=== PATIENT | male | born 1965 | race Caucasian/White ===

== ENCOUNTER 2020-08-07 13:39 | Inpatient (IN) | payer MEDICARE, MEDICAID ==
[~2020-08-07] VITALS: Ht 152.4 cm; Wt 106.5 kg
[2020-08-07 14:05] LABS: BASOPHILS 1.3 % (0-2); EOSINOPHILS 1.8 % (0-7); HEMATOCRIT 45.7 % (42.0-54.0); HEMOGLOBIN 15.4 g/dL (13.5-17.5); LYMPHOCYTES 17.1 % (15-50); MCHC 33.7 g/dL (31.0-37.0); MEAN PLATELET VOLUME 8.2 fL (7.4-10.4); MONOCYTES 5.5 % (2-11); NEUTROPHILS 74.3 % (40-80); PLATELET COUNT 167 10x3/uL (130-400); RBC 4.81 10x6/uL (4.20-6.10); RDW 14.4 % (11.5-14.5); WBC 8.4 10x3/uL (4.8-10.8)
[2020-08-07 14:15] LABS: CALC OSMOLALITY 279 mosm/kg (275-300); CALCIUM 8.6 mg/dL (8.5-10.1); CARBON DIOXIDE 33.6 mmol/L (21.0-32.0); CHLORIDE - SERUM 101 mmol/L (98-107); CREATININE - SERUM 0.8 mg/dL (0.6-1.3); SODIUM 138 mmol/L (136-145); UREA NITROGEN 14 mg/dL (7-18); eGFR NON AFRICAN AMERICAN > 90 mL/min (90-120)
[2020-08-07 14:18] LABS: GLUCOSE 146 mg/dL (74-106)
[2020-08-07 14:29] LABS: ALBUMIN 3.7 g/dL (3.4-5.0); ALKALINE PHOSPHATASE 101 U/L (30-120); ALT (SGPT) 44 U/L (10-68); BILIRUBIN - TOTAL 0.52 mg/dL (0.2-1.3); CKMB 1.7 U/L (0.0-3.6); CREATINE KINASE 158 UL (21-232); PRO BNP 86 pg/mL (0-125); PROTEIN - SERUM 7.2 g/dL (6.4-8.2); TROPONIN-I < 0.017 ng/mL (0.000-0.060)
[2020-08-07 14:47] LABS: APTT 24.9 SECONDS (22.8-39.4); INR 0.97 (0.85-1.17); PROTIME 11.9 SECONDS (11.6-15.0)
[2020-08-07 14:57] VITALS: BP 132/82
[2020-08-07 18:01] VITALS: BP 140/80
[2020-08-07 19:00] VITALS: BP 134/80
[2020-08-07] MEDS ORDERED: LANTUS SOL100 UNIT/2 SC (19:47)
[2020-08-07] MEDS ORDERED: [UNRECOGNIZED DRUG - REMARK] (19:48)
[2020-08-07] MEDS ORDERED: WATER PILL (19:48)
[2020-08-07] MEDS ORDERED: BLOOD PRESSURE PILL (19:48)
[2020-08-07] MEDS ORDERED: PROTONIX40 MG PO (19:48)
[2020-08-07] MEDS ORDERED: [UNRECOGNIZED DRUG - REMARK] (19:49)
[2020-08-07 20:35] LABS: UDS - AMPHET NEGATIVE QUAL (NEGATIVE); UDS - BARB NEGATIVE QUAL (NEGATIVE); UDS - BENZO NEGATIVE QUAL (NEGATIVE); UDS - COCAINE NEGATIVE QUAL (NEGATIVE); UDS - OPIATE POSITIVE QUAL (NEGATIVE); UDS - PCP NEGATIVE QUAL (NEGATIVE); UDS - THC NEGATIVE QUAL (NEGATIVE)
[2020-08-07 21:43] VITALS: BP 153/82
[2020-08-08 00:56] VITALS: BMI 45.9
[2020-08-08 05:38] VITALS: BP 96/41
[2020-08-08 06:10] LABS: BASOPHILS 0.3 % (0-2); EOSINOPHILS 0 % (0-7); HEMATOCRIT 43.9 % (42.0-54.0); HEMOGLOBIN 14.9 g/dL (13.5-17.5); LYMPHOCYTES 7.1 % (15-50); MCH 31.7 pg (26.0-34.0); MCHC 33.8 g/dL (31.0-37.0); MCV 93.7 fL (80.0-100.0); MEAN PLATELET VOLUME 9.1 fL (7.4-10.4); MONOCYTES 1.2 % (2-11); NEUTROPHILS 91.4 % (40-80); PLATELET COUNT 172 10x3/uL (130-400); RBC 4.69 10x6/uL (4.20-6.10); RDW 14.4 % (11.5-14.5); WBC 7.3 10x3/uL (4.8-10.8)
[2020-08-08 06:21] LABS: ALBUMIN 3.3 g/dL (3.4-5.0); ALKALINE PHOSPHATASE 87 U/L (30-120); ALT (SGPT) 42 U/L (10-68); BILIRUBIN - TOTAL 0.55 mg/dL (0.2-1.3); CALCIUM 8.5 mg/dL (8.5-10.1); CARBON DIOXIDE 30.1 mmol/L (21.0-32.0); CHLORIDE - SERUM 101 mmol/L (98-107); CREATININE - SERUM 0.8 mg/dL (0.6-1.3); MAGNESIUM - SERUM 1.9 mg/dL (1.8-2.4); POTASSIUM - SERUM 3.9 mmol/L (3.5-5.1); PROTEIN - SERUM 6.6 g/dL (6.4-8.2); SODIUM 140 mmol/L (136-145); UREA NITROGEN 17 mg/dL (7-18); eGFR NON AFRICAN AMERICAN > 90 mL/min (90-120)
[2020-08-08 06:22] LABS: CALC OSMOLALITY 289 mosm/kg (275-300); GLUCOSE 260 mg/dL (74-106)
--- NOTE | 2020-08-08 08:30 | NUR ---
PATIENT IN BED WITH IV INTACT. NO COMPLAINTS OR SIGNS OF DISTRESS. CALL LIGHT WITHIN REACH.
[2020-08-08 10:28] VITALS: BP 116/67
[2020-08-08 14:19] VITALS: BP 117/74
[2020-08-08 15:25] VITALS: Ht 152.4 cm; Wt 106.5 kg
[2020-08-08 18:36] VITALS: BP 147/75
--- NOTE | 2020-08-08 18:45 | NUR ---
PATIENT UP TO BR AND BACK TO BED AT THIS TIME. IV INTACT. TYLENOL GIVEN FOR H/A. CALL LIGHT WITHIN REACH.
--- NOTE | 2020-08-08 20:20 | NUR ---
OSCAR NATHAN NOTIFIED OF CRITICAL FSBS.
[2020-08-08 21:03] VITALS: BP 127/65
[2020-08-09] VITALS: BP 99/50
--- NOTE | 2020-08-09 02:57 | NUR ---
I have reviewed this patient and I concur with the Shift Assessment completed by the Licensed Practical Nurse today this shift.
[2020-08-09 04:00] VITALS: BP 107/57
[2020-08-09 07:39] LABS: BASOPHILS 0.4 % (0-2); EOSINOPHILS 0.1 % (0-7); HEMATOCRIT 45.7 % (42.0-54.0); HEMOGLOBIN 15.4 g/dL (13.5-17.5); LYMPHOCYTES 8.4 % (15-50); MCH 31.5 pg (26.0-34.0); MCHC 33.7 g/dL (31.0-37.0); MCV 93.7 fL (80.0-100.0); MEAN PLATELET VOLUME 8.5 fL (7.4-10.4); MONOCYTES 3.8 % (2-11); NEUTROPHILS 87.3 % (40-80); PLATELET COUNT 188 10x3/uL (130-400); RBC 4.88 10x6/uL (4.20-6.10); RDW 14.9 % (11.5-14.5)
[2020-08-09 07:54] LABS: ALBUMIN 3.5 g/dL (3.4-5.0); ALKALINE PHOSPHATASE 91 U/L (30-120); ALT (SGPT) 43 U/L (10-68); BILIRUBIN - TOTAL 0.45 mg/dL (0.2-1.3); CALC OSMOLALITY 286 mosm/kg (275-300); CALCIUM 8.7 mg/dL (8.5-10.1); CARBON DIOXIDE 34.2 mmol/L (21.0-32.0); CHLORIDE - SERUM 101 mmol/L (98-107); CREATININE - SERUM 0.8 mg/dL (0.6-1.3); GLUCOSE 220 mg/dL (74-106); PHOSPHOROUS 3.6 mg/dL (2.5-4.9); PROTEIN - SERUM 7.1 g/dL (6.4-8.2); SODIUM 139 mmol/L (136-145); UREA NITROGEN 19 mg/dL (7-18); eGFR NON AFRICAN AMERICAN > 90 mL/min (90-120)
[2020-08-09 07:59] LABS: MAGNESIUM - SERUM 2.5 mg/dL (1.8-2.4)
[2020-08-09 09:56] VITALS: BP 166/77
[2020-08-09 14:06] VITALS: BP 133/89
--- NOTE | 2020-08-09 16:07 | NUR ---
PATIENT AMBULATED WITH O2 AND WALKER DOWN TO THE END OF THE MUÑOZ AND BACK WITH NO PROBLEMS. WAS A LITTLE SOB AFTER WALK.
[2020-08-09 18:38] VITALS: BP 105/48
[2020-08-09 20:00] VITALS: BP 118/60
[2020-08-10] VITALS: BP 104/56
--- NOTE | 2020-08-10 01:28 | NUR ---
PATIENT DENIES PAIN, HE IS A&O X4, HE APPEARS TO BE RESTING WELL, HAS CPAP ON, HE IS CURRENTLY RESTING IN BED WITH HIS EYES CLOSED.
[2020-08-10 04:00] VITALS: BP 103/50
[2020-08-10 06:25] LABS: BASOPHILS 0.2 % (0-2); EOSINOPHILS 0 % (0-7); HEMATOCRIT 45.1 % (42.0-54.0); HEMOGLOBIN 15.1 g/dL (13.5-17.5); LYMPHOCYTES 8.2 % (15-50); MCH 31.5 pg (26.0-34.0); MCHC 33.5 g/dL (31.0-37.0); MCV 94.2 fL (80.0-100.0); MEAN PLATELET VOLUME 9.2 fL (7.4-10.4); MONOCYTES 3.3 % (2-11); NEUTROPHILS 88.3 % (40-80); PLATELET COUNT 221 10x3/uL (130-400); RBC 4.79 10x6/uL (4.20-6.10); RDW 14.5 % (11.5-14.5); WBC 8.4 10x3/uL (4.8-10.8)
--- NOTE | 2020-08-10 07:15 | NUR ---
AWAKE AND ALERT SITTING ON SIDE OF BED. RESP EVEN AND UNLABORED WITH NO DISTRESS NOTED OR VOICED. CAN EXPRESS NEEDS AND WANTS. NO C/O NOTED OR VOICED. UP AB STACIE ABOUT ROOM. ASSESSMENT COMPLETED. C/L IN REACH AT BEDSIDE.
[2020-08-10 07:20] LABS: ALBUMIN 3.3 g/dL (3.4-5.0); ALKALINE PHOSPHATASE 76 U/L (30-120); ALT (SGPT) 42 U/L (10-68); BILIRUBIN - TOTAL 0.46 mg/dL (0.2-1.3); CALC OSMOLALITY 290 mosm/kg (275-300); CALCIUM 8.6 mg/dL (8.5-10.1); CARBON DIOXIDE 32.3 mmol/L (21.0-32.0); CHLORIDE - SERUM 103 mmol/L (98-107); CREATININE - SERUM 0.8 mg/dL (0.6-1.3); GLUCOSE 210 mg/dL (74-106); MAGNESIUM - SERUM 2.5 mg/dL (1.8-2.4); PHOSPHOROUS 2.9 mg/dL (2.5-4.9); POTASSIUM - SERUM 4.1 mmol/L (3.5-5.1); PROTEIN - SERUM 6.5 g/dL (6.4-8.2); SODIUM 142 mmol/L (136-145); UREA NITROGEN 19 mg/dL (7-18); eGFR NON AFRICAN AMERICAN > 90 mL/min (90-120)
[2020-08-10 10:02] VITALS: BP 115/73
--- NOTE | 2020-08-10 11:05 | NUR ---
I have reviewed this patient and I concur with the Shift Assessment completed by the Licensed Practical Nurse today this shift.
[2020-08-10 13:32] VITALS: BP 122/64
[2020-08-10 16:52] VITALS: BP 142/101
[2020-08-10 19:47] VITALS: BP 128/72
--- NOTE | 2020-08-11 02:18 | NUR ---
PT SAID NOT TO AWAKEN FOR 2 OCLOCK TX
--- NOTE | 2020-08-11 02:35 | NUR ---
PATIENT DENIES PAIN, HEA APPEARS TO BE RESTING WELL, HE IS CURRENTLY RESTING IN BED WITH HIS EYES CLOSED.
[2020-08-11 04:30] VITALS: BP 135/92
[2020-08-11 06:36] LABS: BASOPHILS 0.2 % (0-2); EOSINOPHILS 0 % (0-7); HEMATOCRIT 46.2 % (42.0-54.0); HEMOGLOBIN 15.5 g/dL (13.5-17.5); LYMPHOCYTES 9.6 % (15-50); MCH 31.4 pg (26.0-34.0); MCHC 33.5 g/dL (31.0-37.0); MCV 93.7 fL (80.0-100.0); MEAN PLATELET VOLUME 9.1 fL (7.4-10.4); MONOCYTES 4.3 % (2-11); NEUTROPHILS 85.9 % (40-80); PLATELET COUNT 217 10x3/uL (130-400); RBC 4.93 10x6/uL (4.20-6.10); RDW 14.6 % (11.5-14.5); WBC 8.4 10x3/uL (4.8-10.8)
[2020-08-11 06:48] LABS: ALBUMIN 3.2 g/dL (3.4-5.0); ALKALINE PHOSPHATASE 79 U/L (30-120); ALT (SGPT) 39 U/L (10-68); BILIRUBIN - TOTAL 0.36 mg/dL (0.2-1.3); CALC OSMOLALITY 288 mosm/kg (275-300); CALCIUM 8.4 mg/dL (8.5-10.1); CARBON DIOXIDE 33.3 mmol/L (21.0-32.0); CHLORIDE - SERUM 102 mmol/L (98-107); CREATININE - SERUM 0.8 mg/dL (0.6-1.3); GLUCOSE 216 mg/dL (74-106); MAGNESIUM - SERUM 2.4 mg/dL (1.8-2.4); PHOSPHOROUS 3.3 mg/dL (2.5-4.9); POTASSIUM - SERUM 4.1 mmol/L (3.5-5.1); PROTEIN - SERUM 6.5 g/dL (6.4-8.2); SODIUM 140 mmol/L (136-145); UREA NITROGEN 20 mg/dL (7-18); eGFR NON AFRICAN AMERICAN > 90 mL/min (90-120)
--- NOTE | 2020-08-11 08:30 | NUR ---
PATIENT SITTING UP IN BED EATING. NO COMPLAINTS OR SIGNS OF DISTRESS. CALL LIGHT WITHIN REACH.
[2020-08-11 08:56] VITALS: BP 124/78
[2020-08-11 11:59] VITALS: BP 113/69
--- NOTE | 2020-08-11 13:24 | NUR ---
Nutrition follow-up: diet order: consistsent CHO PO intake 100% of meals Labs reviewed; glucose running high->200 mg/dl; pt on Solumedrol 40 mg q 12 hrs Wt: 234# +BM Pt is currently meeting nutritional goals from initial assessment on 08/08/20 RDN will follow-up pt within 5-7 days.
[2020-08-11] MEDS ORDERED: HYDROCHLOROTH12.5 M1 PO (16:37)
[2020-08-11] MEDS ORDERED: PROTONIX40 MG PO (16:38)
[2020-08-11] MEDS ORDERED: BASAGLAR K100 UNIT/1 SC (16:38)
[2020-08-11 17:00] VITALS: BP 117/77
--- NOTE | 2020-08-11 18:00 | NUR ---
PATIENT IN BED WITH IV INTACT. NO COMPLAINTS OR SIGNS OF DISTRESS. SLEEPING WITH CPAP ON. CALL LIGHT WITHIN REACH.
[2020-08-11 19:35] VITALS: BP 112/69
--- NOTE | 2020-08-12 04:51 | NUR ---
PATIENT DENIES PAIN, HE APPEARED TO REST WELL THROUGH THE NIGHT, HE IS CURRENTLY RESTING IN BED WITH HIS EYES CLOSED.
[2020-08-12 05:15] VITALS: BP 127/69
[2020-08-12 06:40] LABS: HEMATOCRIT 48.1 % (42.0-54.0); HEMOGLOBIN 15.9 g/dL (13.5-17.5); MCV 93.9 fL (80.0-100.0); MEAN PLATELET VOLUME 9.1 fL (7.4-10.4); PLATELET COUNT 218 10x3/uL (130-400); RBC 5.12 10x6/uL (4.20-6.10); RDW 14.8 % (11.5-14.5); WBC 8.4 10x3/uL (4.8-10.8)
[2020-08-12 07:06] LABS: ALBUMIN 3.2 g/dL (3.4-5.0); ALKALINE PHOSPHATASE 74 U/L (30-120); ALT (SGPT) 38 U/L (10-68); BILIRUBIN - TOTAL 0.32 mg/dL (0.2-1.3); CALC OSMOLALITY 286 mosm/kg (275-300); CALCIUM 8.5 mg/dL (8.5-10.1); CARBON DIOXIDE 31.1 mmol/L (21.0-32.0); CHLORIDE - SERUM 103 mmol/L (98-107); CREATININE - SERUM 0.7 mg/dL (0.6-1.3); GLUCOSE 203 mg/dL (74-106); MAGNESIUM - SERUM 2.4 mg/dL (1.8-2.4); PHOSPHOROUS 3.3 mg/dL (2.5-4.9); POTASSIUM - SERUM 4.2 mmol/L (3.5-5.1); PROTEIN - SERUM 6.4 g/dL (6.4-8.2); SODIUM 140 mmol/L (136-145); UREA NITROGEN 19 mg/dL (7-18); eGFR NON AFRICAN AMERICAN > 90 mL/min (90-120)
[2020-08-12 08:10] VITALS: BP 110/63
[2020-08-12 08:10] LABS: LYMPHOCYTES 14 % (15-50); MONOCYTES 5 % (2-11); NEUTROPHILS 81 % (40-80); PLATELET ESTIMATE NORMAL
[2020-08-12 08:13] LABS: IMMUNOGLOBULIN A 109 mg/dL (90-386); IMMUNOGLOBULIN G 623 mg/dL (603-1613)
--- NOTE | 2020-08-12 08:45 | NUR ---
AAOX4 UPON ENTERING. ADMINISTERED MORNING MEDICATION AT THIS TIME. NO DIFFICULTIES. RESTING UPRIGHT IN BED. DENIES ANY NEEDS. BED IN LOWEST POSITION, BED RAILS X2, CALL LIGHT WITHIN REACH. WILL CONTINUE POC. ASSESSMENT PERFORMED AT THIS TIME.
--- NOTE | 2020-08-12 09:22 | MORECARE ---
CASE MANAGEMENT DISCHARGE SUMMARY PATIENT: LISA HAZEL UNIT: [id number] ADM DATE: 08/07/20 AGE: 55 : 65 SEX: M ROOM/BED: D.[facility] AUTHOR: DEIDRA,DOC PHYSICIAN: REFERRING PHYSICIAN: KHADIJAH GERONIMO MD DATE OF SERVICE: 08/12/20 Case Management Discharge Planning Summary DCP REVIEW SUMMARY ANTICIPATED D/C DATE: EXPECTED LOS : CASE STATUS: DCP Initiated INITIAL REVIEW: 08/07/2020 INITIAL REVIEWER: Michelle Holbrook FINAL DISCHARGE DISPOSITION: : FINAL REVIEWER: FINAL REVIEW DATE: DCP Focus Questions & Answers QUESTION: ANSWER : PATIENT: LISA HAZEL ENCOUNTER: [id number] MEDICAL RECORD#: [id number] ADMISSION DATE: 08/07/2020 DISCHARGE DATE: ATTENDING MD: KHADIJAH CAMACHO : AGE: 55 MARITAL STATUS: M DC PLAN ID: [id number] FACILITY: [facility] PRINTED ON: 08/12/20 9:22 CT All edits/amendments must be made on the electronic document DICTATION DATE: 08/12/20921 VACUUM SYSTEM TESTER: DM 08/12/20921 RPT#: [id number] DC DATE: STATUS: ADM IN [facility] [address] [place] [address] END OF REPORT
--- NOTE | 2020-08-12 09:33 | MORECARE ---
CASE MANAGEMENT DISCHARGE SUMMARY PATIENT: LISA HAZEL UNIT: [id number] ADM DATE: 08/07/20 AGE: 55 : 65 SEX: M ROOM/BED: D.2223 AUTHOR: DEIDRA,DOC PHYSICIAN: REFERRING PHYSICIAN: KHADIJAH GERONIMO MD DATE OF SERVICE: 08/12/20 Case Management Discharge Planning Summary COMMENTS ENTERED DATE: 08/12/20 9:20 CT COMMENT TYPE: Discharge Planning REVIEWER: Michelle Holbrook CM met with patient at bedside after obtaining verbal consent. CM discussed availability / needs of home health, REHAB and medical equipment. Patient states has oxygen, trilogy, nebs and a cane. States has oxygen with [employer]. He states his pcp is Dr. Jackson and he uses [facility] for medications. He is currently between places to live. He states he could use rehab at a snf to get better. Patient states any snf in [place] is acceptable. I am faxing a referral to [facility] today. Patient may need 7 days of iv antibiotics per MD note. CM to follow and assist as needed. DCP REVIEW SUMMARY ANTICIPATED D/C DATE: EXPECTED LOS : CASE STATUS: DCP Initiated INITIAL REVIEW: 08/07/2020 INITIAL REVIEWER: Michelle Holbrook FINAL DISCHARGE DISPOSITION: : FINAL REVIEWER: FINAL REVIEW DATE: DCP Focus Questions & Answers QUESTION: ANSWER : PROVIDER NETWORKING REVIEW DATE: 08/12/2020 SERVICE TYPE: Fdc Facility REVIEWER: Michelle Holbrook PROVIDER: FINAL PROVIDER? : FINAL DATE/TIME: CT PATIENT: LISA HAZEL ENCOUNTER: [id number] MEDICAL RECORD#: [id number] ADMISSION DATE: 08/07/2020 DISCHARGE DATE: ATTENDING MD: KHADIJAH CAMACHO : AGE: 55 MARITAL STATUS: M DC PLAN ID: [id number] FACILITY: [facility] PRINTED ON: 08/12/20 9:33 CT All edits/amendments must be made on the electronic document DICTATION DATE: 08/12/20932 PRESSURIZER: MING 08/12/20932 RPT#: [id number] DC DATE: STATUS: ADM IN [facility] [address] [place] [address] END OF REPORT
[2020-08-12 11:31] VITALS: BP 96/61
--- NOTE | 2020-08-12 12:48 | NUR ---
I have reviewed this patient and I concur with the Shift Assessment completed by the Licensed Practical Nurse today this shift.
--- NOTE | 2020-08-12 14:44 | NUR ---
REQUESTED MEDICATION FOR HEADACHE, PROVIDED TYLENOL. REFUSED MEDICINE. EXPLAINED THAT IS ALL THAT IS ORDERED FOR PRN PAIN.
[2020-08-12 15:25] VITALS: BP 106/64
[2020-08-12 20:00] VITALS: BP 112/61
--- NOTE | 2020-08-13 00:53 | NUR ---
DEV CONTACTED PT CPAP MACHINE IS FULL OF BUGS PT CANNOT USE IT IN THE HOSPITAL AND REFUSES TO WEAR A MASK AND USE THE MACHINE FROM HERE. TECH FOR MACHINE CAME IN TO EXCHANGE AND GAVE PT A NEW MACHINE WITH A NOSE ADAPTER, OLD MACHINE REMOVED FROM PT ROOM. WILL CONT WITH PLAN OF CARE.
--- NOTE | 2020-08-13 03:13 | NUR ---
I have reviewed this patient and I concur with the Shift Assessment completed by the Licensed Practical Nurse today this shift.
[2020-08-13 04:00] VITALS: BP 124/80
[2020-08-13 06:11] LABS: IGG SUBCLASS 1 332 mg/dL (248-810); IGG SUBCLASS 2 206 mg/dL (130-555); IGG SUBCLASS 3 49 mg/dL (15-102); IGG SUBCLASS 4 3 mg/dL (2-96); IGGS - IGG SERUM 652 mg/dL (603-1613)
[2020-08-13 08:46] VITALS: BP 99/60
[2020-08-13 11:11] LABS: IMMUNOGLOBULIN E 52 IU/mL (6-495)
[2020-08-13 13:10] VITALS: BP 120/72
--- NOTE | 2020-08-13 14:52 | MORECARE ---
CASE MANAGEMENT DISCHARGE SUMMARY PATIENT: LISA HAZEL UNIT: [id number] ADM DATE: 08/07/20 AGE: 55 : 65 SEX: M ROOM/BED: D.2223 AUTHOR: DEIDRA,DOC PHYSICIAN: REFERRING PHYSICIAN: KHADIJAH GERONIMO MD DATE OF SERVICE: 08/13/20 Case Management Discharge Planning Summary COMMENTS ENTERED DATE: 08/13/20 14:46 CT COMMENT TYPE: Discharge Planning REVIEWER: Michelle FIELDS FILLED OUT AND FAXED. WAITING DETERMINATION. CM TO FOLLOW AND ASSIST NEEDED. ENTERED DATE: 08/12/20 9:20 CT COMMENT TYPE: Discharge Planning REVIEWER: Michelle Holbrook CM met with patient at bedside after obtaining verbal consent. CM discussed availability / needs of home health, REHAB and medical equipment. Patient states has oxygen, trilogy, nebs and a cane. States has oxygen with [facility]. He states his pcp is Dr. Jackson and he uses [facility] for medications. He is currently between places to live. He states he could use rehab at a snf to get better. Patient states any snf in [place] is acceptable. I am faxing a referral to [facility] today. Patient may need 7 days of iv antibiotics per MD note. CM to follow and assist as needed. DCP REVIEW SUMMARY ANTICIPATED D/C DATE: EXPECTED LOS : CASE STATUS: DCP Initiated INITIAL REVIEW: 08/07/2020 INITIAL REVIEWER: Michelle Holbrook FINAL DISCHARGE DISPOSITION: : FINAL REVIEWER: FINAL REVIEW DATE: DCP Focus Questions & Answers QUESTION: ANSWER : PROVIDER NETWORKING REVIEW DATE: 08/12/2020 SERVICE TYPE: Fci Facility REVIEWER: Michelle Holbrook PROVIDER: FINAL PROVIDER? : FINAL DATE/TIME: CT PATIENT: LISA HAZEL ENCOUNTER: [id number] MEDICAL RECORD#: [id number] ADMISSION DATE: 08/07/2020 DISCHARGE DATE: ATTENDING MD: KHADIJAH CAMACHO : AGE: 55 MARITAL STATUS: M DC PLAN ID: [id number] FACILITY: [facility] PRINTED ON: 08/13/20 14:52 CT All edits/amendments must be made on the electronic document DICTATION DATE: 08/13/201451 VACUUM BOTTLE ASSEMBLER: MING 08/13/201451 RPT#: [id number] DC DATE: STATUS: ADM IN [facility] [address] [place] [address] END OF REPORT
[2020-08-13 17:55] VITALS: BP 116/60
--- NOTE | 2020-08-13 18:38 | NUR ---
PATIENT IN BED WITH EYES CLOSED RESTING QUIETLY AT THIS TIME WITH CPAP ON . CALL LIGHT WITHIN REACH.
--- NOTE | 2020-08-13 19:20 | NUR ---
OT NOTE: PT COMPLETED ADL MOB WITH SBA. PT COMPLETED STANDING BALANCE WITH SBA. PT COMPLETED BUE AROM TOLERATED AND WITHIN AVAILABLE ROM. [phone] ANABEL HOLDER COTA
[2020-08-13 20:00] VITALS: BP 119/69
--- NOTE | 2020-08-14 02:00 | NUR ---
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 TYLENOL GIVEN WILL CONT TO MONITOR
--- NOTE | 2020-08-14 04:24 | NUR ---
I have reviewed this patient and I concur with the Shift Assessment completed by the Licensed Practical Nurse today this shift.
[2020-08-14 05:57] LABS: BASOPHILS 0.3 % (0-2); EOSINOPHILS 0.2 % (0-7); HEMATOCRIT 48.1 % (42.0-54.0); HEMOGLOBIN 16.1 g/dL (13.5-17.5); MCH 31.8 pg (26.0-34.0); MCHC 33.5 g/dL (31.0-37.0); MCV 94.8 fL (80.0-100.0); MEAN PLATELET VOLUME 8.5 fL (7.4-10.4); MONOCYTES 5.9 % (2-11); NEUTROPHILS 80.6 % (40-80); PLATELET COUNT 259 10x3/uL (130-400); RBC 5.07 10x6/uL (4.20-6.10); RDW 14.6 % (11.5-14.5); WBC 10.4 10x3/uL (4.8-10.8)
[2020-08-14 06:17] LABS: CALC OSMOLALITY 284 mosm/kg (275-300); CALCIUM 8.6 mg/dL (8.5-10.1); CARBON DIOXIDE 33.5 mmol/L (21.0-32.0); CHLORIDE - SERUM 102 mmol/L (98-107); CREATININE - SERUM 0.8 mg/dL (0.6-1.3); GLUCOSE 159 mg/dL (74-106); POTASSIUM - SERUM 4.2 mmol/L (3.5-5.1); SODIUM 140 mmol/L (136-145); UREA NITROGEN 21 mg/dL (7-18); eGFR NON AFRICAN AMERICAN > 90 mL/min (90-120)
--- NOTE | 2020-08-14 08:52 | NUR ---
AAOX4 UPON ENTERING. ADMINISTERED MORNING MEDICATION, NO DIFFICULTIES. 8 UNITS INSULIN PER SLIDING SCALE. SITTING IN BED SIDE CHAIR. DENIES FURTHER NEEDS AT THIS TIME. WILL CONTINUE POC. ASSESSMENT PERFORMED AT THIS TIME.
[2020-08-14 09:14] VITALS: BP 115/64
[2020-08-14] MEDS ORDERED: PERFOROMIS20 MCG/21 UPD (12:00)
[2020-08-14] MEDS ORDERED: SINGULAIR10 MG PO (12:01)
[2020-08-14] MEDS ORDERED: MUCINEX DM ER1 EAC1 PO (12:01)
[2020-08-14] MEDS ORDERED: DALIRESP250 MCG PO (12:01)
[2020-08-14] MEDS ORDERED: TESSALON PERLE100 MG PO (12:01)
[2020-08-14] MEDS ORDERED: FLUTICASONE PRO16 GM NASAL (12:02)
[2020-08-14] MEDS ORDERED: PULMICORT0.5 MG/21 UPD (12:02)
[2020-08-14] MEDS ORDERED: PREDNISONE10 MG PO (12:04)
--- NOTE | 2020-08-14 12:04 | MORECARE ---
CASE MANAGEMENT DISCHARGE SUMMARY PATIENT: LISA HAZEL UNIT: [id number] ADM DATE: 08/07/20 AGE: 55 : 65 SEX: M ROOM/BED: D.2223 AUTHOR: DEIDRA,DOC PHYSICIAN: REFERRING PHYSICIAN: KHADIJAH GERONIMO MD DATE OF SERVICE: 08/14/20 Case Management Discharge Planning Summary COMMENTS ENTERED DATE: 08/14/20 11:59 CT COMMENT TYPE: Discharge Planning REVIEWER: Michelleromana Holbrook Received response from [facility] and they state patient does not meet fci criteria and has been denied fci placement by [facility]. Anticipate patient to [place] soon. I will give him a list of homeless shelters if he decides to go to one. Patient has a truck and states he has his belongings in them. CM to follow and assist as needed. ENTERED DATE: 08/13/20 14:46 CT COMMENT TYPE: Discharge Planning REVIEWER: Michelleromana SOTOK FILLED OUT AND FAXED. WAITING DETERMINATION. CM TO FOLLOW AND ASSIST NEEDED. ENTERED DATE: 08/12/20 9:20 CT COMMENT TYPE: Discharge Planning REVIEWER: Michelle Holbrook CM met with patient at bedside after obtaining verbal consent. CM discussed availability / needs of home health, REHAB and medical equipment. Patient states has oxygen, trilogy, nebs and a cane. States has oxygen with [employer]. He states his pcp is Dr. Jackson and he uses [facility] pharmacy for medications. He is currently between places to live. He states he could use rehab at a snf to get better. Patient states any snf in [place] is acceptable. I am faxing a referral to [facility] today. Patient may need 7 days of iv antibiotics per MD note. CM to follow and assist as needed. DCP REVIEW SUMMARY ANTICIPATED D/C DATE: EXPECTED LOS : CASE STATUS: DCP Initiated INITIAL REVIEW: 08/07/2020 INITIAL REVIEWER: Michelle Holbrook FINAL DISCHARGE DISPOSITION: : FINAL REVIEWER: FINAL REVIEW DATE: DCP Focus Questions & Answers QUESTION: ANSWER : PROVIDER NETWORKING REVIEW DATE: 08/12/2020 SERVICE TYPE: Assisted Facility REVIEWER: Michelle Holbrook PROVIDER: FINAL PROVIDER? : FINAL DATE/TIME: CT PATIENT: LISA HAZEL ENCOUNTER: [id number] MEDICAL RECORD#: [id number] ADMISSION DATE: 08/07/2020 DISCHARGE DATE: ATTENDING MD: KHADIJAH CAMACHO : AGE: 55 MARITAL STATUS: M DC PLAN ID: [id number] FACILITY: [facility] PRINTED ON: 08/14/20 12:04 CT All edits/amendments must be made on the electronic document DICTATION DATE: 08/14/201203 PAVING SUPERVISOR: MING 08/14/20 1204 RPT#: [id number] DC DATE: STATUS: ADM IN [facility] [address] [place] [address] END OF REPORT
--- NOTE | 2020-08-14 13:02 | NUR ---
ADMINISTERED MEDICATION, NO DIFFICULTIES. 8 UNITS INSULIN PER SLIDING SCALE FOR SUGAR OF 213. SITTING IN BEDSIDE CHAIR. DENIES FURTHER NEEDS. WILL CONTINUE POC.
--- NOTE | 2020-08-14 14:54 | MORECARE ---
CASE MANAGEMENT DISCHARGE SUMMARY PATIENT: LISA HAZEL UNIT: [id number] ADM DATE: 08/07/20 AGE: 55 : 65 SEX: M ROOM/BED: D.2223 AUTHOR: DEIDRA,DOC PHYSICIAN: REFERRING PHYSICIAN: KHADIJAH GERONIMO MD DATE OF SERVICE: 08/14/20 Case Management Discharge Planning Summary COMMENTS ENTERED DATE: 08/14/20 14:37 CT COMMENT TYPE: Discharge Planning REVIEWER: Michelle Holbrook CM SPOKE WITH PATIENT AND GAVE HIM A LIST OF HOMELESS SHELTERS. IMM SIGNED AND PLACED ON CHART. CM TO FOLLOW AND ASSIST NEEDED. ENTERED DATE: 08/14/20 11:59 CT COMMENT TYPE: Discharge Planning REVIEWER: Michelle Holbrook Received response from [facility] and they state patient does not meet long-term criteria and has been denied long-term placement by [facility]. Anticipate patient to [place] soon. I will give him a list of homeless shelters if he decides to go to one. Patient has a truck and states he has his belongings in them. CM to follow and assist as needed. ENTERED DATE: 08/13/20 14:46 CT COMMENT TYPE: Discharge Planning REVIEWER: Michelle FIELDS FILLED OUT AND FAXED. WAITING DETERMINATION. CM TO FOLLOW AND ASSIST NEEDED. ENTERED DATE: 08/12/20 9:20 CT COMMENT TYPE: Discharge Planning REVIEWER: Michelle Holbrook CM met with patient at bedside after obtaining verbal consent. CM discussed availability / needs of home health, REHAB and medical equipment. Patient states has oxygen, trilogy, nebs and a cane. States has oxygen with [employer]. He states his pcp is Dr. Jackson and he uses [facility] pharmacy for medications. He is currently between places to live. He states he could use rehab at a snf to get better. Patient states any snf in [place] is acceptable. I am faxing a referral to [facility] today. Patient may need 7 days of iv antibiotics per MD note. CM to follow and assist as needed. DCP REVIEW SUMMARY ANTICIPATED D/C DATE: EXPECTED LOS : CASE STATUS: DCP Initiated INITIAL REVIEW: 08/07/2020 INITIAL REVIEWER: Michelle Holbrook FINAL DISCHARGE DISPOSITION: : FINAL REVIEWER: FINAL REVIEW DATE: DCP Focus Questions & Answers QUESTION: ANSWER : PROVIDER NETWORKING REVIEW DATE: 08/12/2020 SERVICE TYPE: Assisted Facility REVIEWER: Michelle Holbrook PROVIDER: FINAL PROVIDER? : FINAL DATE/TIME: CT PATIENT: LISA HAZEL ENCOUNTER: [id number] MEDICAL RECORD#: [id number] ADMISSION DATE: 08/07/2020 DISCHARGE DATE: ATTENDING MD: KHADIJAH CAMACHO : AGE: 55 MARITAL STATUS: M DC PLAN ID: [id number] FACILITY: [facility] PRINTED ON: 08/14/20 14:53 CT All edits/amendments must be made on the electronic document DICTATION DATE: 08/14/201452 HYDROPRESS OPERATOR: MING 08/14/201452 RPT#: [id number] DC DATE: STATUS: ADM IN [facility] [address] [place] [address] END OF REPORT
--- NOTE | 2020-08-14 15:28 | NUR ---
SIGNED ALL NECESSARY PAPERWORK AT THIS TIME. REMOVED IV FROM LEFT AC, TOLERATED WELL. COVERED WITH GAUZE AND TAPE. REQUESTED TO HAVE MAINTANCE CONTACTED TO HELP WITH FLAT. WILL GIVE THEM A CALL.
--- NOTE | 2020-08-14 16:27 | NUR ---
OT NOTE: PT COMPLETED BED TO TOILET ADL MOB USING CANE WITH CGA. PT COMPLETED TOILETING TASKS WITH SBA. PT COMPLETED ADL MOB TO SINK FOR HAND HYGIENE WITH CGA. PT COMPLETED FACE HYGIENE WITH SBA AT SINK LEVEL. PT COMPLETED SIT TO STAND WITH SBA-CGA. PT COMPLETED SITTING BALANCE WITH SPV-SBA. CL IN REACH. [phone] THANK YOU,ANJALI ESPINOSA
--- NOTE | 2020-08-17 09:48 | MORECARE ---
CASE MANAGEMENT DISCHARGE SUMMARY PATIENT: LISA HAZEL UNIT: [id number] ADM DATE: 08/07/20 AGE: 55 : 65 SEX: M ROOM/BED: D.2223 AUTHOR: DEIDRA,DOC PHYSICIAN: REFERRING PHYSICIAN: KHADIJAH GERONIMO MD DATE OF SERVICE: 08/17/20 Case Management Discharge Planning Summary COMMENTS ENTERED DATE: 08/14/20 14:37 CT COMMENT TYPE: Discharge Planning REVIEWER: Michelle Holbrook CM SPOKE WITH PATIENT AND GAVE HIM A LIST OF HOMELESS SHELTERS. IMM SIGNED AND PLACED ON CHART. CM TO FOLLOW AND ASSIST NEEDED. ENTERED DATE: 08/14/20 11:59 CT COMMENT TYPE: Discharge Planning REVIEWER: Michelle Holbrook Received response from [employer] and they state patient does not meet alf criteria and has been denied alf placement by [facility]. Anticipate patient to [place] soon. I will give him a list of homeless shelters if he decides to go to one. Patient has a truck and states he has his belongings in them. CM to follow and assist as needed. ENTERED DATE: 08/13/20 14:46 CT COMMENT TYPE: Discharge Planning REVIEWER: Michelle FIELDS FILLED OUT AND FAXED. WAITING DETERMINATION. CM TO FOLLOW AND ASSIST NEEDED. ENTERED DATE: 08/12/20 9:20 CT COMMENT TYPE: Discharge Planning REVIEWER: Michelle Holbrook CM met with patient at bedside after obtaining verbal consent. CM discussed availability / needs of home health, REHAB and medical equipment. Patient states has oxygen, trilogy, nebs and a cane. States has oxygen with [employer]. He states his pcp is Dr. Jackson and he uses [facility] for medications. He is currently between places to live. He states he could use rehab at a snf to get better. Patient states any snf in [place] is acceptable. I am faxing a referral to [facility] today. Patient may need 7 days of iv antibiotics per MD note. CM to follow and assist as needed. DCP REVIEW SUMMARY ANTICIPATED D/C DATE: EXPECTED LOS : CASE STATUS: DCP Initiated INITIAL REVIEW: 08/07/2020 INITIAL REVIEWER: Michelle Holbrook FINAL DISCHARGE DISPOSITION: : FINAL REVIEWER: FINAL REVIEW DATE: DCP Focus Questions & Answers QUESTION: ANSWER : PROVIDER NETWORKING REVIEW DATE: 08/12/2020 SERVICE TYPE: Shelter Facility REVIEWER: Michelle Holbrook PROVIDER: FINAL PROVIDER? : FINAL DATE/TIME: CT PATIENT: LISA HAZEL ENCOUNTER: [id number] MEDICAL RECORD#: [id number] ADMISSION DATE: 08/07/2020 DISCHARGE DATE: 08/14/2020 ATTENDING MD: KHADIJAH CAMACHO : AGE: 55 MARITAL STATUS: M DC PLAN ID: [id number] FACILITY: [facility] PRINTED ON: 08/17/20 9:48 CT All edits/amendments must be made on the electronic document DICTATION DATE: 08/17/20947 TERRITORY SERVICE REPRESENTATIVE: MING 08/17/20947 RPT#: [id number] DC DATE:08/14/20 STATUS: DIS IN [place] [id number] [place] [address] END OF REPORT
== END 2020-08-14 15:30 | disposition home or self-care (01) | DRG 190 ==
LOC: D.ER 13:39 → D.MS 14:49
PROVIDERS: Emergency Medicine; Internal Medicine Pulmonary Disease; ADMIT Emergency Medicine; ATTEND Emergency Medicine
DX: J44.1 Chronic obstructive pulmonary disease with (acute) exacerbation (principal); J96.21 Acute and chronic respiratory failure with hypoxia; Z68.42 Body mass index [BMI] 45.0-49.9, adult; J20.9 Acute bronchitis, unspecified; J44.0 Chronic obstructive pulmonary disease with (acute) lower respiratory infection; Z91.128 Patient's intentional underdosing of medication regimen for other reason; K21.9 Gastro-esophageal reflux disease without esophagitis; E11.65 Type 2 diabetes mellitus with hyperglycemia; F19.10 Other psychoactive substance abuse, uncomplicated; I10 Essential (primary) hypertension; E66.01 Morbid (severe) obesity due to excess calories

== ENCOUNTER 2020-08-24 08:34 | Inpatient (IN) | payer MEDICARE, MEDICAID ==
[~2020-08-24] VITALS: Ht 152.4 cm; Wt 90.7 kg
[~2020-08-24 08:34] MED LIST: BASAGLAR K100 UNIT/1 SC; BLOOD PRESSURE PILL; DALIRESP250 MCG PO; FLUTICASONE PRO16 GM NASAL; HYDROCHLOROTH12.5 M1 PO; LANTUS SOL100 UNIT/2 SC; MUCINEX DM ER1 EAC1 PO; PERFOROMIS20 MCG/21 UPD; PREDNISONE10 MG PO; PROTONIX40 MG PO; PULMICORT0.5 MG/21 UPD; SINGULAIR10 MG PO; TESSALON PERLE100 MG PO; WATER PILL; [UNRECOGNIZED DRUG - REMARK]; [UNRECOGNIZED DRUG - REMARK]
[2020-08-24 09:15] LABS: INFLUENZA TYPE A NEGATIVE (NEGATIVE); INFLUENZA TYPE B NEGATIVE (NEGATIVE)
[2020-08-24 10:07] LABS: BASOPHILS 1.1 % (0-2); EOSINOPHILS 1.3 % (0-7); HEMATOCRIT 46.2 % (42.0-54.0); HEMOGLOBIN 15.3 g/dL (13.5-17.5); LYMPHOCYTES 13.2 % (15-50); MCH 31.5 pg (26.0-34.0); MCHC 33.1 g/dL (31.0-37.0); MCV 95.4 fL (80.0-100.0); MONOCYTES 5.6 % (2-11); NEUTROPHILS 78.8 % (40-80); PLATELET COUNT 186 10x3/uL (130-400); RBC 4.85 10x6/uL (4.20-6.10); RDW 14.6 % (11.5-14.5); WBC 7.3 10x3/uL (4.8-10.8)
[2020-08-24 10:14] LABS: CALC OSMOLALITY 288 mosm/kg (275-300); CALCIUM 8.1 mg/dL (8.5-10.1); CARBON DIOXIDE 36.6 mmol/L (21.0-32.0); CHLORIDE - SERUM 105 mmol/L (98-107); CREATININE - SERUM 0.8 mg/dL (0.6-1.3); GLUCOSE 144 mg/dL (74-106); SODIUM 143 mmol/L (136-145); UREA NITROGEN 16 mg/dL (7-18); eGFR NON AFRICAN AMERICAN > 90 mL/min (90-120)
[2020-08-24 10:15] LABS: APTT 24.4 SECONDS (22.8-39.4); PROTIME 12.2 SECONDS (11.6-15.0)
[2020-08-24 10:32] LABS: ALBUMIN 3.1 g/dL (3.4-5.0); ALKALINE PHOSPHATASE 76 U/L (30-120); ALT (SGPT) 43 U/L (10-68); BILIRUBIN - TOTAL 0.63 mg/dL (0.2-1.3); CKMB 1.6 U/L (0.0-3.6); CREATINE KINASE 65 UL (21-232); PRO BNP 851 pg/mL (0-125); PROTEIN - SERUM 6.1 g/dL (6.4-8.2)
[2020-08-24 12:52] LABS: SARS-CoV-2 ANTIGEN NEGATIVE- SARS-COV-2 (NEGATIVE)
--- NOTE | 2020-08-24 18:28 | NUR ---
RECEIVED REPORT FROM KAREEN IN ED, PATIENT TO UNIT SOON.
[2020-08-24 20:00] VITALS: BP 127/83
--- NOTE | 2020-08-24 20:00 | NUR ---
REPORT RECEIVED. PT A&O, UP IN BED C/O MEYER. NO S/S OF DISTRESS OBSERVED. RR EVEN & UNLABORED ON 3L. IV TO 20G R AC SL. BED LOCKED AND LOWERED, CL IN REACH. ASSESSMENT COMPLETE. WILL CONT POC.
[2020-08-25] VITALS (7 sets, daily range): BP systolic 119–147; BP diastolic 63–90; Ht 152.4 cm; Wt 90.7 kg
--- NOTE | 2020-08-25 05:54 | NUR ---
PT C/O MEYER, ADMINISTERED TRAMADOL PER EMAR WITH [facility]. ANSWERED PTS CL, PT C/O MEYER THAT HAS NOT GONE AWAY. ADMINISTERED TRAMADOL PER EMAR. BPS 127/83, 147/90, 119/90 THROUGH THE NIGHT. HR 95-110 THROUGH THE NIGHT. NO S/S OF DISTRESS OBSERVED.
[2020-08-25 06:12] LABS: ALBUMIN 3.2 g/dL (3.4-5.0); ALKALINE PHOSPHATASE 89 U/L (30-120); ALT (SGPT) 44 U/L (10-68); CALCIUM 8.1 mg/dL (8.5-10.1); CARBON DIOXIDE 38.3 mmol/L (21.0-32.0); CHLORIDE - SERUM 100 mmol/L (98-107); CREATININE - SERUM 0.7 mg/dL (0.6-1.3); MAGNESIUM - SERUM 1.9 mg/dL (1.8-2.4); PROTEIN - SERUM 6.4 g/dL (6.4-8.2); SODIUM 139 mmol/L (136-145); eGFR NON AFRICAN AMERICAN > 90 mL/min (90-120)
--- NOTE | 2020-08-25 06:16 | NUR ---
SPOKE WITH [facility] PHARMACIST IN ORDER TO OBTAIN PTS HOME MED REC. BASAGLAR, BUDESONIDE, AND MONTELUKAST ARE THE ONLY RECENT PRESCRIPTIONS FILLED. PHARMACIST STATES THAT ALL OTHER PRESCRIPTIONS ARE VERY OLD.
[2020-08-25 06:17] LABS: CALC OSMOLALITY 282 mosm/kg (275-300); GLUCOSE 203 mg/dL (74-106); UREA NITROGEN 10 mg/dL (7-18)
--- NOTE | 2020-08-25 10:20 | NUR ---
PATIENT LYING SUPINE, NO S/S OF DISTRESS, RESP EVEN AND NON LABORED, NO PAIN AT THIS TIME, MEDICATIONS ADMINISTERED WITH NO COMPLICATIONS, NO FURTHER NEEDS AT THIS TIME, CLIR, BLP
[2020-08-25 13:32] LABS: UDS - AMPHET NEGATIVE QUAL (NEGATIVE); UDS - BARB NEGATIVE QUAL (NEGATIVE); UDS - BENZO POSITIVE QUAL (NEGATIVE); UDS - COCAINE NEGATIVE QUAL (NEGATIVE); UDS - OPIATE NEGATIVE QUAL (NEGATIVE); UDS - PCP NEGATIVE QUAL (NEGATIVE); UDS - THC NEGATIVE QUAL (NEGATIVE)
--- NOTE | 2020-08-25 20:00 | NUR ---
PT IS A HOMELESS MAN WHO LIVES IN HIS TRUCK THAT IS CURRENTLY IN THE PARKING LOT. HE IS HERE FOR COPD EXACERBATION. HE IS VERY LETHARGIC AND SLEEPY. HIS C PAP IS IN PLACE. HE APPEARS TO BE RESTING QUIETLY IN BED. HE HAS 4L O2 WHEN NOT ON C PAP. HIS EYES DON'T APPEAR TO BE SO BULGING NOW. HE HAS MANY WRINKLES UNDER HIS EYES. HIS IV IS IN HIS R AC AND IS SL. HE GETS BS ACHS. OUTSIDE THE HOSPITAL HE IS NON COMPLIANT. HE DOESN'T C/O OF ANYTHING. HE ASKED FOR A PAIR OF NON SKID SOCKS WHICH WERE DELIVERED TO HIM. BLOOD SUGAR WAS 315 AND RECEIVED 8 UNITS OF INSULIN.
[2020-08-26] VITALS: BP 144/75
--- NOTE | 2020-08-26 02:00 | NUR ---
I WAS READING THROUGH THE CHART I SAW THAT HE WAS POSITIVE FOR BENZOIDS ON ADMISSION AND THAT HE SMOKES 2-4 PPD. HE IS ALSO ON LOVENOX.
[2020-08-26 04:00] VITALS: BP 128/86
[2020-08-26 06:33] LABS: ALBUMIN 3.2 g/dL (3.4-5.0); ALKALINE PHOSPHATASE 77 U/L (30-120); ALT (SGPT) 46 U/L (10-68); BILIRUBIN - TOTAL 0.65 mg/dL (0.2-1.3); CALC OSMOLALITY 290 mosm/kg (275-300); CALCIUM 8.9 mg/dL (8.5-10.1); CHLORIDE - SERUM 99 mmol/L (98-107); CREATININE - SERUM 0.8 mg/dL (0.6-1.3); GLUCOSE 200 mg/dL (74-106); MAGNESIUM - SERUM 2.2 mg/dL (1.8-2.4); PROTEIN - SERUM 6.4 g/dL (6.4-8.2); SODIUM 143 mmol/L (136-145); UREA NITROGEN 12 mg/dL (7-18); eGFR NON AFRICAN AMERICAN > 90 mL/min (90-120)
[2020-08-26 07:36] LABS: CARBON DIOXIDE 42.6 mmol/L (21.0-32.0)
--- NOTE | 2020-08-26 07:50 | NUR ---
Lying in bed, awake/alert/oriented, T/R self ad tita, cont of B/B with BRPs per self ad tita, c/o general aching pain rated 8/10, states pain never really goes away and declines medication at this time, call light/phone/water within reach, no s/s of acute distress observed.
[2020-08-26 08:27] VITALS: BP 135/83
[2020-08-26 11:45] VITALS: BP 135/80
--- NOTE | 2020-08-26 13:59 | MORECARE ---
CASE MANAGEMENT DISCHARGE SUMMARY PATIENT: LISA HAZEL UNIT: [id number] ADM DATE: 08/24/20 AGE: 55 : 65 SEX: M ROOM/BED: D.2107 AUTHOR: ROBER GAY PHYSICIAN: REFERRING PHYSICIAN: VICTORINA LEDEZMA DO DATE OF SERVICE: 08/26/20 Case Management Discharge Planning Summary DCP REVIEW SUMMARY ANTICIPATED D/C DATE: EXPECTED LOS : CASE STATUS: DCP Initiated INITIAL REVIEW: 08/26/2020 INITIAL REVIEWER: Fouzia Guzman FINAL DISCHARGE DISPOSITION: : FINAL REVIEWER: FINAL REVIEW DATE: DCP Focus Questions & Answers QUESTION: ANSWER : PATIENT: LISA HAZEL ENCOUNTER: [id number] MEDICAL RECORD#: [id number] ADMISSION DATE: 08/24/2020 DISCHARGE DATE: ATTENDING MD: VICTORINA VALERO : AGE: 55 MARITAL STATUS: M DC PLAN ID: [id number] FACILITY: [facility] PRINTED ON: 08/26/20 13:59 CT All edits/amendments must be made on the electronic document DICTATION DATE: 08/26/20 135 INFORMATICA: DM 08/26/20 1359 RPT#: [id number] DC DATE: STATUS: ADM IN [facility] [address] [place] [address] END OF REPORT
--- NOTE | 2020-08-26 14:11 | MORECARE ---
CASE MANAGEMENT DISCHARGE SUMMARY PATIENT: LISA HAZEL JR UNIT: [id number] ADM DATE: 08/24/20 AGE: 55 : 65 SEX: M ROOM/BED: D.2107 AUTHOR: ROBER GAY PHYSICIAN: REFERRING PHYSICIAN: VICTORINA LEDEZMA DO DATE OF SERVICE: 08/26/20 Case Management Discharge Planning Summary DCP REVIEW SUMMARY ANTICIPATED D/C DATE: EXPECTED LOS : CASE STATUS: DCP Initiated INITIAL REVIEW: 08/26/2020 INITIAL REVIEWER: Fouzia Guzman FINAL DISCHARGE DISPOSITION: : FINAL REVIEWER: FINAL REVIEW DATE: DCP Focus Questions & Answers DCP Screen QUESTION: ANSWER High Risk Factors: : Decreased adherence to treatment plan DCP Evaluation QUESTION: ANSWER Patient's current cognitive status: : *Oriented to person, place, situation, time and present Patient gives permission to discuss discharge plans with: (name, relationship and number) : No one Patient's ability to cope with chronic illness : c. Inadequate (3+ ED visits in 6 mos., readmits within 30 days, 2+ hospital admissions in 1 yr.) Does the patient have the ability to pay for or attain post discharge needs / services? : No Functional screen assessment: : Unable to manage ADLs without immediate ongoing assistance Physical Status: : Independent with ADL's Equipment needed for post hospitalization: : Other Is there a likelihood that the patient will require additional services to return to the preadmission environment? : Yes Living Arrangements: : Other Other Equipment comments: : Adapter to plug in oxygen Results of this evaluation have been discussed with: : Patient Patient with capacity for self-care or can be cared for in same environment as prior to hospitalization? : No Living arrangements comments: : homeless Baseline cognitive status: : *Oriented to person, place, situation, time and present Medication Management: : Patient states cannot afford medications [facility] Does Patient have transportation to get home and to follow-up medical appointments when discharged from the hospital? : No Comments: : States his vehicle is out of gas Would patient like to participate in any Care Coordination programs (if applicable): : Not applicable Equipment in use: : Ventilator (home) Equipment in use: : Other Equipment in use: : Nebulizer Equipment in use: : Home Oxygen with Nasal Cannula Other Equipment comments: : [employer] is DME Mental health screen: : No mental health history Psychosocial status: : Adult with cognitive limitations DCP Re-evaluation QUESTION: ANSWER Would patient like to participate in any Care Coordination programs (if applicable): : Not applicable PATIENT: LISA HAZEL ENCOUNTER: [id number] MEDICAL RECORD#: [id number] ADMISSION DATE: 08/24/2020 DISCHARGE DATE: ATTENDING MD: VICTORINA VALERO : AGE: 55 MARITAL STATUS: M DC PLAN ID: [id number] FACILITY: [facility] PRINTED ON: 08/26/20 14:10 CT All edits/amendments must be made on the electronic document DICTATION DATE: 08/26/201409 MAKE UP ARRANGER: MING 08/26/20 141 RPT#: [id number] DC DATE: STATUS: ADM IN [facility] [address] [place] [address] END OF REPORT
--- NOTE | 2020-08-26 14:48 | MORECARE ---
CASE MANAGEMENT DISCHARGE SUMMARY PATIENT: LISA HAZEL JR UNIT: [id number] ADM DATE: 08/24/20 AGE: 55 : 65 SEX: M ROOM/BED: D.5565 AUTHOR: DEIDRA,DOC PHYSICIAN: REFERRING PHYSICIAN: VICTORINA LEDEZMA DO DATE OF SERVICE: 08/26/20 Case Management Discharge Planning Summary COMMENTS ENTERED DATE: 08/26/20 14:03 CT COMMENT TYPE: Discharge Planning REVIEWER: Fouzia Guzman CM met with patient to discuss discharge planning/needs. As soon as I entered the room he started yelling and saying no one helps him. He states that he was here not long ago and didn't get any help. I left him some homeless fci lists and food pantry lists and told him I would return in a few minutes when he could speak with me. I returned and he apologized for his action. He states he lives in his truck. States he is out of gas and it is sitting in the parking lot. States that he feels he needs to go to a facility for therapy. He has oxygen and a trilogy but states he has no where to plug it in. I called [employer] and a new cord for his oxygen would cost 100 dollars. He states he does not have any money. He does agree to skilled facility if someone will accept him. [facility] for [facility] signed. If not accepted by a skilled facility, he will need cord to plug in his oxygen. He may need gas money assist. His trilogy will not work without being plugged in. CM will send a referral to [facility]. DCP REVIEW SUMMARY ANTICIPATED D/C DATE: EXPECTED LOS : CASE STATUS: DCP Initiated INITIAL REVIEW: 08/26/2020 INITIAL REVIEWER: Fouzia Guzman FINAL DISCHARGE DISPOSITION: : FINAL REVIEWER: FINAL REVIEW DATE: DCP Focus Questions & Answers DCP Screen QUESTION: ANSWER High Risk Factors: : Decreased adherence to treatment plan DCP Evaluation QUESTION: ANSWER Patient's current cognitive status: : *Oriented to person, place, situation, time and present Patient gives permission to discuss discharge plans with: (name, relationship and number) : No one Patient's ability to cope with chronic illness : c. Inadequate (3+ ED visits in 6 mos., readmits within 30 days, 2+ hospital admissions in 1 yr.) Does the patient have the ability to pay for or attain post discharge needs / services? : No Functional screen assessment: : Unable to manage ADLs without immediate ongoing assistance Physical Status: : Independent with ADL's Equipment needed for post hospitalization: : Other Is there a likelihood that the patient will require additional services to return to the preadmission environment? : Yes Living Arrangements: : Other Other Equipment comments: : Adapter to plug in oxygen Results of this evaluation have been discussed with: : Patient Patient with capacity for self-care or can be cared for in same environment as prior to hospitalization? : No Living arrangements comments: : homeless Baseline cognitive status: : *Oriented to person, place, situation, time and present Medication Management: : Patient states cannot afford medications [facility] Does Patient have transportation to get home and to follow-up medical appointments when discharged from the hospital? : No Comments: : States his vehicle is out of gas Would patient like to participate in any Care Coordination programs (if applicable): : Not applicable Equipment in use: : Ventilator (home) Equipment in use: : Other Equipment in use: : Nebulizer Equipment in use: : Home Oxygen with Nasal Cannula Other Equipment comments: : [employer] is DME Mental health screen: : No mental health history Psychosocial status: : Adult with cognitive limitations DCP Re-evaluation QUESTION: ANSWER Would patient like to participate in any Care Coordination programs (if applicable): : Not applicable PATIENT: LISA HAZEL ENCOUNTER: [id number] MEDICAL RECORD#: [id number] ADMISSION DATE: 08/24/2020 DISCHARGE DATE: ATTENDING MD: VICTORINA VALERO : AGE: 55 MARITAL STATUS: M DC PLAN ID: [id number] FACILITY: [facility] PRINTED ON: 08/26/20 14:48 CT All edits/amendments must be made on the electronic document DICTATION DATE: 08/26/201447 PROFESSOR OF SURGERY: MING 08/26/201447 RPT#: [id number] DC DATE: STATUS: ADM IN [facility] [address] [place] [address] END OF REPORT
--- NOTE | 2020-08-26 15:02 | MORECARE ---
CASE MANAGEMENT DISCHARGE SUMMARY PATIENT: LISA HAZEL JR UNIT: [id number] ADM DATE: 08/24/20 AGE: 55 : 65 SEX: M ROOM/BED: D.8319 AUTHOR: DEIDRA,DOC PHYSICIAN: REFERRING PHYSICIAN: VICTORINA LEDEZMA DO DATE OF SERVICE: 08/26/20 Case Management Discharge Planning Summary COMMENTS ENTERED DATE: 08/26/20 14:57 CT COMMENT TYPE: Discharge Planning REVIEWER: Fouzia Guzman [facility]erral to [facility] informed. ENTERED DATE: 08/26/20 14:03 CT COMMENT TYPE: Discharge Planning REVIEWER: Fouzia Guzman CM met with patient to discuss discharge planning/needs. As soon as I entered the room he started yelling and saying no one helps him. He states that he was here not long ago and didn't get any help. I left him some homeless jail lists and food pantry lists and told him I would return in a few minutes when he could speak with me. I returned and he apologized for his action. He states he lives in his truck. States he is out of gas and it is sitting in the parking lot. States that he feels he needs to go to a facility for therapy. He has oxygen and a trilogy but states he has no where to plug it in. I called [employer] and a new cord for his oxygen would cost 100 dollars. He states he does not have any money. He does agree to skilled facility if someone will accept him. [facility] for [facility] signed. If not accepted by a skilled facility, he will need cord to plug in his oxygen. He may need gas money assist. His trilogy will not work without being plugged in. CM will send a referral to [facility]. DCP REVIEW SUMMARY ANTICIPATED D/C DATE: EXPECTED LOS : CASE STATUS: DCP Initiated INITIAL REVIEW: 08/26/2020 INITIAL REVIEWER: Fouzia Guzman FINAL DISCHARGE DISPOSITION: : FINAL REVIEWER: FINAL REVIEW DATE: DCP Focus Questions & Answers DCP Screen QUESTION: ANSWER High Risk Factors: : Decreased adherence to treatment plan DCP Evaluation QUESTION: ANSWER Patient's current cognitive status: : *Oriented to person, place, situation, time and present Patient gives permission to discuss discharge plans with: (name, relationship and number) : No one Patient's ability to cope with chronic illness : c. Inadequate (3+ ED visits in 6 mos., readmits within 30 days, 2+ hospital admissions in 1 yr.) Does the patient have the ability to pay for or attain post discharge needs / services? : No Functional screen assessment: : Unable to manage ADLs without immediate ongoing assistance Physical Status: : Independent with ADL's Equipment needed for post hospitalization: : Other Is there a likelihood that the patient will require additional services to return to the preadmission environment? : Yes Living Arrangements: : Other Other Equipment comments: : Adapter to plug in oxygen Results of this evaluation have been discussed with: : Patient Patient with capacity for self-care or can be cared for in same environment as prior to hospitalization? : No Living arrangements comments: : homeless Baseline cognitive status: : *Oriented to person, place, situation, time and present Medication Management: : Patient states cannot afford medications [facility] Does Patient have transportation to get home and to follow-up medical appointments when discharged from the hospital? : No Comments: : States his vehicle is out of gas Would patient like to participate in any Care Coordination programs (if applicable): : Not applicable Equipment in use: : Ventilator (home) Equipment in use: : Other Equipment in use: : Nebulizer Equipment in use: : Home Oxygen with Nasal Cannula Other Equipment comments: : [employer] is DME Mental health screen: : No mental health history Psychosocial status: : Adult with cognitive limitations DCP Re-evaluation QUESTION: ANSWER Would patient like to participate in any Care Coordination programs (if applicable): : Not applicable PATIENT: LISA HAZEL ENCOUNTER: [id number] MEDICAL RECORD#: [id number] ADMISSION DATE: 08/24/2020 DISCHARGE DATE: ATTENDING MD: VICTORINA VALERO : AGE: 55 MARITAL STATUS: M DC PLAN ID: [id number] FACILITY: [facility] PRINTED ON: 08/26/20 15:02 CT All edits/amendments must be made on the electronic document DICTATION DATE: 08/26/20 1502 PROJECT/PRODUCTION MANAGER IMAGING: MING 08/26/20 1502 RPT#: [id number] DC DATE: STATUS: ADM IN [facility] [address] [place] [address] END OF REPORT
[2020-08-26 15:56] VITALS: BP 121/73
[2020-08-26 20:00] VITALS: BP 121/74
[2020-08-27 04:00] VITALS: BP 118/88
[2020-08-27 06:12] LABS: BASOPHILS 0.1 % (0-2); EOSINOPHILS 0 % (0-7); HEMATOCRIT 45.2 % (42.0-54.0); HEMOGLOBIN 15.3 g/dL (13.5-17.5); LYMPHOCYTES 13.8 % (15-50); MCH 31.9 pg (26.0-34.0); MCHC 33.7 g/dL (31.0-37.0); MCV 94.4 fL (80.0-100.0); MEAN PLATELET VOLUME 8.3 fL (7.4-10.4); MONOCYTES 5.5 % (2-11); NEUTROPHILS 80.6 % (40-80); PLATELET COUNT 186 10x3/uL (130-400); RBC 4.79 10x6/uL (4.20-6.10); RDW 14.1 % (11.5-14.5); WBC 6.8 10x3/uL (4.8-10.8)
[2020-08-27 06:24] LABS: ALBUMIN 3.1 g/dL (3.4-5.0); ALKALINE PHOSPHATASE 71 U/L (30-120); ALT (SGPT) 40 U/L (10-68); BILIRUBIN - TOTAL 0.57 mg/dL (0.2-1.3); CALC OSMOLALITY 285 mosm/kg (275-300); CALCIUM 8.8 mg/dL (8.5-10.1); CARBON DIOXIDE 38.2 mmol/L (21.0-32.0); CHLORIDE - SERUM 100 mmol/L (98-107); CREATININE - SERUM 0.7 mg/dL (0.6-1.3); GLUCOSE 173 mg/dL (74-106); MAGNESIUM - SERUM 2.2 mg/dL (1.8-2.4); POTASSIUM - SERUM 4.3 mmol/L (3.5-5.1); PROTEIN - SERUM 6.2 g/dL (6.4-8.2); SODIUM 141 mmol/L (136-145); UREA NITROGEN 16 mg/dL (7-18); eGFR NON AFRICAN AMERICAN > 90 mL/min (90-120)
[2020-08-27 08:44] VITALS: BP 125/86
--- NOTE | 2020-08-27 10:55 | NUR ---
Nutrition Reassessment/Follow-up: Eating well. Potential d/c to the [facility] pending acceptance. Diet: Cardiac, Consistent Carb PO intake: 100% x last 4 meals No new wt; last wt: 200# (08/25) Labs noted: Glu 173, Alb 3.1 Meds noted: Solumedrol, Humulin Nutrition Intervention/Recommendations: -Nutrition needs, Dx, & goals unchanged since initial assessment. -Continue current diet as tolerated. -RD will follow up within 5-7 days.
--- NOTE | 2020-08-27 11:03 | NUR ---
patient walked 82 feet tired out fairly fast complained of being a bit short of breath walked on 2 liters 02
[2020-08-27 13:08] VITALS: BP 125/83
--- NOTE | 2020-08-27 14:29 | NUR ---
OT NOTE: PT COMPLETED BED MOBILITY WITH SBA. PT COMPLETED ADL MOBILITY WITH CGA. PT COMPLETED EOB SITTING ENDURANCE WITH SPV. PT COMPLETED FACE HYGIENE WITH SETUP AT EOB. PT REQUIRED MOD A FOR ADJUSTING SOCKS. [phone] THANK YOU,ANJALI ESPINOSA
--- NOTE | 2020-08-27 15:20 | NUR ---
PATIENT AAOX4, IV MEDICATION ADMINISTERED AND CASE MANAGMENT SPOKE TO PATIENT ABOUT GOING TO THE [facility], WAITING ON INSURANCE TO APPROVE, NO FURTHER NEEDS AT THIS TIME, ANH US
[2020-08-27 16:56] VITALS: BP 148/75
[2020-08-27 20:22] VITALS: BP 146/76
--- NOTE | 2020-08-27 20:29 | MORECARE ---
CASE MANAGEMENT DISCHARGE SUMMARY PATIENT: LISA HAZEL JR UNIT: [id number] ADM DATE: 08/24/20 AGE: 55 : 65 SEX: M ROOM/BED: D.4081 AUTHOR: DEIDRA,DOC PHYSICIAN: REFERRING PHYSICIAN: VICTORINA LEDEZMA DO DATE OF SERVICE: 08/27/20 Case Management Discharge Planning Summary COMMENTS ENTERED DATE: 08/27/20 20:22 CT COMMENT TYPE: Discharge Planning REVIEWER: Sandrine Rg [facility] came to evaluate patient today. Patient would not agree to having his check released to [facility] for fpc care and [facility] is not willing to accept patient for rehab d/t him not having a safe discharge plan. Patient most likely will have to discharge back to his truck. 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 CM will continue to follow and assist as needed with discharge planning needs. ENTERED DATE: 08/26/20 14:57 CT COMMENT TYPE: Discharge Planning REVIEWER: Fouzia Guzman Referral to [facility] informed. ENTERED DATE: 08/26/20 14:03 CT COMMENT TYPE: Discharge Planning REVIEWER: Fouzia Guzman CM met with patient to discuss discharge planning/needs. As soon as I entered the room he started yelling and saying no one helps him. He states that he was here not long ago and didn't get any help. I left him some homeless nursing home lists and food pantry lists and told him I would return in a few minutes when he could speak with me. I returned and he apologized for his action. He states he lives in his truck. States he is out of gas and it is sitting in the parking lot. States that he feels he needs to go to a facility for therapy. He has oxygen and a trilogy but states he has no where to plug it in. I called [employer] and a new cord for his oxygen would cost 100 dollars. He states he does not have any money. He does agree to skilled facility if someone will accept him. [facility] for [facility] signed. If not accepted by a skilled facility, he will need cord to plug in his oxygen. He may need gas money assist. His trilogy will not work without being plugged in. CM will send a referral to [facility]. DCP REVIEW SUMMARY ANTICIPATED D/C DATE: EXPECTED LOS : CASE STATUS: DCP Initiated INITIAL REVIEW: 08/26/2020 INITIAL REVIEWER: Fouzia Guzman FINAL DISCHARGE DISPOSITION: : FINAL REVIEWER: FINAL REVIEW DATE: DCP Focus Questions & Answers DCP Screen QUESTION: ANSWER High Risk Factors: : Decreased adherence to treatment plan DCP Evaluation QUESTION: ANSWER Patient's current cognitive status: : *Oriented to person, place, situation, time and present Patient gives permission to discuss discharge plans with: (name, relationship and number) : No one Patient's ability to cope with chronic illness : c. Inadequate (3+ ED visits in 6 mos., readmits within 30 days, 2+ hospital admissions in 1 yr.) Does the patient have the ability to pay for or attain post discharge needs / services? : No Functional screen assessment: : Unable to manage ADLs without immediate ongoing assistance Physical Status: : Independent with ADL's Equipment needed for post hospitalization: : Other Is there a likelihood that the patient will require additional services to return to the preadmission environment? : Yes Living Arrangements: : Other Other Equipment comments: : Adapter to plug in oxygen Results of this evaluation have been discussed with: : Patient Patient with capacity for self-care or can be cared for in same environment as prior to hospitalization? : No Living arrangements comments: : homeless Baseline cognitive status: : *Oriented to person, place, situation, time and present Medication Management: : Patient states cannot afford medications [facility] Does Patient have transportation to get home and to follow-up medical appointments when discharged from the hospital? : No Comments: : States his vehicle is out of gas Would patient like to participate in any Care Coordination programs (if applicable): : Not applicable Equipment in use: : Ventilator (home) Equipment in use: : Other Equipment in use: : Nebulizer Equipment in use: : Home Oxygen with Nasal Cannula Other Equipment comments: : [employer] is DME Mental health screen: : No mental health history Psychosocial status: : Adult with cognitive limitations DCP Re-evaluation QUESTION: ANSWER Would patient like to participate in any Care Coordination programs (if applicable): : Not applicable PATIENT: LISA HAZEL ENCOUNTER: [id number] MEDICAL RECORD#: [id number] ADMISSION DATE: 08/24/2020 DISCHARGE DATE: ATTENDING MD: VICTORINA VALERO : AGE: 55 MARITAL STATUS: M DC PLAN ID: [id number] FACILITY: PRINTED ON: 08/27/20 20:28 CT All edits/amendments must be made on the electronic document DICTATION DATE: 08/27/202027 APPLICATION SUPPORT CONSULTANT: MING 08/27/202027 RPT#: [id number] DC DATE: STATUS: ADM IN [address] [place] [address] END OF REPORT
[2020-08-28 01:38] VITALS: BP 124/80
[2020-08-28 05:41] LABS: BASOPHILS 0 % (0-2); EOSINOPHILS 0 % (0-7); HEMATOCRIT 46.2 % (42.0-54.0); HEMOGLOBIN 15.8 g/dL (13.5-17.5); LYMPHOCYTES 9.8 % (15-50); MCH 32.2 pg (26.0-34.0); MCHC 34.1 g/dL (31.0-37.0); MCV 94.2 fL (80.0-100.0); MEAN PLATELET VOLUME 8.1 fL (7.4-10.4); MONOCYTES 3.3 % (2-11); NEUTROPHILS 86.9 % (40-80); PLATELET COUNT 188 10x3/uL (130-400); RDW 14.5 % (11.5-14.5); WBC 6.6 10x3/uL (4.8-10.8)
[2020-08-28 06:25] LABS: ALBUMIN 3.1 g/dL (3.4-5.0); ALKALINE PHOSPHATASE 71 U/L (30-120); ALT (SGPT) 37 U/L (10-68); BILIRUBIN - TOTAL 0.63 mg/dL (0.2-1.3); CALC OSMOLALITY 286 mosm/kg (275-300); CALCIUM 8.2 mg/dL (8.5-10.1); CARBON DIOXIDE 33.8 mmol/L (21.0-32.0); CHLORIDE - SERUM 101 mmol/L (98-107); CREATININE - SERUM 0.7 mg/dL (0.6-1.3); MAGNESIUM - SERUM 2.2 mg/dL (1.8-2.4); POTASSIUM - SERUM 4.4 mmol/L (3.5-5.1); PROTEIN - SERUM 6.2 g/dL (6.4-8.2); SODIUM 139 mmol/L (136-145); UREA NITROGEN 19 mg/dL (7-18); eGFR NON AFRICAN AMERICAN > 90 mL/min (90-120)
[2020-08-28 06:30] LABS: GLUCOSE 223 mg/dL (74-106)
[2020-08-28 06:37] VITALS: BP 112/53
--- NOTE | 2020-08-28 07:05 | NUR ---
PT LYING IN BED WITH HOB ELEVATED 30 DEGREES. RESP EVEN AND UNLABORED. O2 VIA NC AT [address]. AAO X4[address] DENIES NEEDS AT THIS TIME. CLIR. BED IN LOWEST POSITION. SIDE RAILS X2
[2020-08-28] MEDS ORDERED: PREDNISONE10 MG PO (11:21)
[2020-08-28 12:30] VITALS: BP 118/70
--- NOTE | 2020-08-28 14:43 | NUR ---
OT NOTE: PT COMPLETED SUPINE TO SIT WITH SBA. PT COMPLETED EOB SITTING WITH SPV. PT COMPLETED ADL MOB IN ROOM WITH SBA. PT COMPLETED FACE HYGIENE WITH SBA. [phone] ANABEL HOLDER COTA
--- NOTE | 2020-08-28 15:02 | NUR ---
PT DISCHARGED WITH ALL BELONGINGS. DISCHARGE INSTRUCTIONS PROVIDED VERBALLY AND WRITTEN. PT VERBALIZED UNDERSTANDING. IV DC. IV CATH TIP INTACT. DRESSING APPLIED TO SITE.
--- NOTE | 2020-08-28 15:28 | MORECARE ---
CASE MANAGEMENT DISCHARGE SUMMARY PATIENT: LISA HAZEL JR UNIT: [id number] ADM DATE: 08/24/20 AGE: 55 : 65 SEX: M ROOM/BED: D.2107 AUTHOR: DEIDRA,DOC PHYSICIAN: REFERRING PHYSICIAN: VICTORINA LEDEZMA DO DATE OF SERVICE: 08/28/20 Case Management Discharge Planning Summary COMMENTS ENTERED DATE: 08/28/20 15:24 CT COMMENT TYPE: Discharge Planning REVIEWER: Marii Saini CM SPOKE WITH PATIEN EXTENSIVIELY TODAY, OFFEREDRESOURCE INFORMATION FO HOMLESS SHELTERS, SENIOR MINING DETAIL DRAFTSPERSON NUMBERS. PT STATES HE CAN NOT READ OR WRITE AND THE INFORMATION IS USELESS. PT SUGGESTED THAT IF I WANTED TO BE OF HELP TO HIM GIVING HIM A GAS VOUCHER AND GETING MAINTENANCE TO AIR UP HIS TIRE WOULD HELP. EXPLAINED TO PATIENT THAT GAS VOUCHERS ARE NOT AVAILABLE. MAINTAN[employer] CALLED AND DID AGREE TO AIR PATIENT TIRE FOR HIM. PT WAS DISCHARGED AND VERBALIZED UNDERTANDING SIGNED FORM. ENTERED DATE: 08/27/20 20:22 CT COMMENT TYPE: Discharge Planning REVIEWER: Sandrine Rg [facility] came to evaluate patient today. Patient would not agree to having his check released to [facility] for retirement care and [facility] is not willing to accept patient for rehab d/t him not having a safe discharge plan. Patient most likely will have to discharge back to his truck. 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 CM will continue to follow and assist as needed with discharge planning needs. ENTERED DATE: 08/26/20 14:57 CT COMMENT TYPE: Discharge Planning REVIEWER: Fouzia Guzman [facility] ENTERED DATE: 08/26/20 14:03 CT COMMENT TYPE: Discharge Planning REVIEWER: Fouzia Guzman CM met with patient to discuss discharge planning/needs. As soon as I entered the room he started yelling and saying no one helps him. He states that he was here not long ago and didn't get any help. I left him some homeless assisted lists and food pantry lists and told him I would return in a few minutes when he could speak with me. I returned and he apologized for his action. He states he lives in his truck. States he is out of gas and it is sitting in the parking lot. States that he feels he needs to go to a facility for therapy. He has oxygen and a trilogy but states he has no where to plug it in. I called [employer] and a new cord for his oxygen would cost 100 dollars. He states he does not have any money. He does agree to skilled facility if someone will accept him. MARYBEL for [facility] signed. If not accepted by a skilled facility, he will need cord to plug in his oxygen. He may need gas money assist. His trilogy will not work without being plugged in. CM will send a [place] [facility] [facility] REVIEW SUMMARY ANTICIPATED D/C DATE: EXPECTED LOS : CASE STATUS: DCP Initiated INITIAL REVIEW: 08/26/2020 INITIAL REVIEWER: Fouzia Guzman FINAL DISCHARGE DISPOSITION: : FINAL REVIEWER: FINAL REVIEW DATE: DCP Focus Questions & Answers DCP Screen QUESTION: ANSWER High Risk Factors: : Decreased adherence to treatment plan DCP Evaluation QUESTION: ANSWER Patient's current cognitive status: : *Oriented to person, place, situation, time and present Patient gives permission to discuss discharge plans with: (name, relationship and number) : No one Patient's ability to cope with chronic illness : c. Inadequate (3+ ED visits in 6 mos., readmits within 30 days, 2+ hospital admissions in 1 yr.) Does the patient have the ability to pay for or attain post discharge needs / services? : No Functional screen assessment: : Unable to manage ADLs without immediate ongoing assistance Physical Status: : Independent with ADL's Equipment needed for post hospitalization: : Other Is there a likelihood that the patient will require additional services to return to the preadmission environment? : Yes Living Arrangements: : Other Other Equipment comments: : Adapter to plug in oxygen Results of this evaluation have been discussed with: : Patient Patient with capacity for self-care or can be cared for in same environment as prior to hospitalization? : No Living arrangements comments: : homeless Baseline cognitive status: : *Oriented to person, place, situation, time and present Medication Management: : Patient states cannot afford medications [facility] : [facility] Does Patient have transportation to get home and to follow-up medical appointments when discharged from the hospital? : No Comments: : States his vehicle is out of gas Would patient like to participate in any Care Coordination programs (if applicable): : Not applicable Equipment in use: : Ventilator (home) Equipment in use: : Other Equipment in use: : Nebulizer Equipment in use: : Home Oxygen with Nasal Cannula Other Equipment comments: : [employer] is DME Mental health screen: : No mental health history Psychosocial status: : Adult with cognitive limitations DCP Re-evaluation QUESTION: ANSWER Would patient like to participate in any Care Coordination programs (if applicable): : Not applicable PATIENT: LISA HAZEL ENCOUNTER: [id number] MEDICAL RECORD#: [id number] ADMISSION DATE: 08/24/2020 DISCHARGE DATE: 08/28/2020 ATTENDING MD: VICTORINA VALERO : AGE: 55 MARITAL STATUS: M DC PLAN ID: [id number] FACILITY: [facility] PRINTED ON: 08/28/20 15:28 CT All edits/amendments must be made on the electronic document DICTATION DATE: 08/28/20 152 PHARMACIST AIDE: MING 08/28/20 152 RPT#: [id number] DC DATE:08/28/20 STATUS: DIS IN [facility] [address] [place] [address] END OF REPORT
--- NOTE | 2020-08-31 14:02 | MORECARE ---
CASE MANAGEMENT DISCHARGE SUMMARY PATIENT: LISA HAZEL JR UNIT: [id number] ADM DATE: 08/24/20 AGE: 55 : 65 SEX: M ROOM/BED: D.2107 AUTHOR: DEIDRA,DOC PHYSICIAN: REFERRING PHYSICIAN: VICTORINA LEDEZMA DO DATE OF SERVICE: 08/31/20 Case Management Discharge Planning Summary COMMENTS ENTERED DATE: 08/28/20 15:24 CT COMMENT TYPE: Discharge Planning REVIEWER: Marii Saini CM SPOKE WITH PATIEN EXTENSIVIELY TODAY, OFFEREDRESOURCE INFORMATION FO HOMLESS SHELTERS, SENIOR BELT FIXER NUMBERS. PT STATES HE CAN NOT READ OR WRITE AND THE INFORMATION IS USELESS. PT SUGGESTED THAT IF I WANTED TO BE OF HELP TO HIM GIVING HIM A GAS VOUCHER AND GETING MAINTENANCE TO AIR UP HIS TIRE WOULD HELP. EXPLAINED TO PATIENT THAT GAS VOUCHERS ARE NOT AVAILABLE. [employer] CALLED AND DID AGREE TO AIR PATIENT TIRE FOR HIM. PT WAS DISCHARGED AND VERBALIZED UNDERTANDING SIGNED FORM. ENTERED DATE: 08/27/20 20:22 CT COMMENT TYPE: Discharge Planning REVIEWER: Sandrine Rg [facility] came to evaluate patient today. Patient would not agree to having his check released to [facility] for fci care and [facility] is not willing to accept patient for rehab d/t him not having a safe discharge plan. Patient most likely will have to discharge back to his truck. CM will check to see if there is any assistance that might be available to get a cord so he can system support specialist his trilogy. CM will continue to follow and assist as needed with discharge planning needs. ENTERED DATE: 08/26/20 14:57 CT COMMENT TYPE: Discharge Planning REVIEWER: Fouzia Guzman [facility] ENTERED DATE: 08/26/20 14:03 CT COMMENT TYPE: Discharge Planning REVIEWER: Fouzia Guzman CM met with patient to discuss discharge planning/needs. As soon as I entered the room he started yelling and saying no one helps him. He states that he was here not long ago and didn't get any help. I left him some homeless assisted lists and food pantry lists and told him I would return in a few minutes when he could speak with me. I returned and he apologized for his action. He states he lives in his truck. States he is out of gas and it is sitting in the parking lot. States that he feels he needs to go to a facility for therapy. He has oxygen and a trilogy but states he has no where to plug it in. I called [employer] and a new cord for his oxygen would cost 100 dollars. He states he does not have any money. He does agree to skilled facility if someone will accept him. MARYBEL for [facility] signed. If not accepted by a skilled facility, he will need cord to plug in his oxygen. He may need gas money assist. His trilogy will not work without being plugged in. CM will send a referral to [facility]. [facility] REVIEW SUMMARY ANTICIPATED D/C DATE: EXPECTED LOS : CASE STATUS: DCP Initiated INITIAL REVIEW: 08/26/2020 INITIAL REVIEWER: Fouzia Guzman FINAL DISCHARGE DISPOSITION: : FINAL REVIEWER: FINAL REVIEW DATE: DCP Focus Questions & Answers DCP Screen QUESTION: ANSWER High Risk Factors: : Decreased adherence to treatment plan DCP Evaluation QUESTION: ANSWER Patient's ability to cope with chronic illness : c. Inadequate (3+ ED visits in 6 mos., readmits within 30 days, 2+ hospital admissions in 1 yr.) Patient gives permission to discuss discharge plans with: (name, relationship and number) : No one Patient's current cognitive status: : *Oriented to person, place, situation, time and present Physical Status: : Independent with ADL's Functional screen assessment: : Unable to manage ADLs without immediate ongoing assistance Does the patient have the ability to pay for or attain post discharge needs / services? : No Living Arrangements: : Other Is there a likelihood that the patient will require additional services to return to the preadmission environment? : Yes Equipment needed for post hospitalization: : Other Baseline cognitive status: : *Oriented to person, place, situation, time and present Living arrangements comments: : homeless Patient with capacity for self-care or can be cared for in same environment as prior to hospitalization? : No Results of this evaluation have been discussed with: : Patient Other Equipment comments: : Adapter to plug in oxygen Medication Management: : Patient states cannot afford medications [facility] : [facility] Does Patient have transportation to get home and to follow-up medical appointments when discharged from the hospital? : No Would patient like to participate in any Care Coordination programs (if applicable): : Not applicable Comments: : States his vehicle is out of gas Equipment in use: : Home Oxygen with Nasal Cannula Equipment in use: : Nebulizer Equipment in use: : Other Equipment in use: : Ventilator (home) Other Equipment comments: : [employer] is DME Mental health screen: : No mental health history Psychosocial status: : Adult with cognitive limitations DCP Re-evaluation QUESTION: ANSWER Would patient like to participate in any Care Coordination programs (if applicable): : Not applicable PATIENT: LISA HAZEL ENCOUNTER: [id number] MEDICAL RECORD#: [id number] ADMISSION DATE: 08/24/2020 DISCHARGE DATE: 08/28/2020 ATTENDING MD: VICTORINA VALERO : AGE: 55 MARITAL STATUS: M DC PLAN ID: [id number] FACILITY: [facility] PRINTED ON: 08/31/20 14:02 CT All edits/amendments must be made on the electronic document DICTATION DATE: 08/31/201401 TRIAL PARALEGAL: MING 08/31/20 140 RPT#: [id number] DC DATE:08/28/20 STATUS: DIS IN [facility] [address] [place] [address] END OF REPORT
== END 2020-08-28 15:03 | disposition home or self-care (01) | DRG 189 ==
LOC: D.M2 → D.ER 08:34 → D.M2 18:25
PROVIDERS: Emergency Medicine; ADMIT Family Medicine; ATTEND Family Medicine
DX: J96.21 Acute and chronic respiratory failure with hypoxia (principal); J44.1 Chronic obstructive pulmonary disease with (acute) exacerbation; J44.0 Chronic obstructive pulmonary disease with (acute) lower respiratory infection; J96.22 Acute and chronic respiratory failure with hypercapnia; J20.9 Acute bronchitis, unspecified; Z59.0 Homelessness; J30.9 Allergic rhinitis, unspecified; K21.9 Gastro-esophageal reflux disease without esophagitis; E11.9 Type 2 diabetes mellitus without complications; I10 Essential (primary) hypertension; F17.200 Nicotine dependence, unspecified, uncomplicated; Z72.89 Other problems related to lifestyle; F19.10 Other psychoactive substance abuse, uncomplicated; Z87.01 Personal history of pneumonia (recurrent); Z91.19 Patient's noncompliance with other medical treatment and regimen